=== PATIENT | male | born 1950 | race Two or more races ===

== ENCOUNTER 2017-09-08 07:04 | Outpatient (CLI) | payer OTHER ==
[~2017-09-08 07:04] MED LIST: ALL DAY ALLERGY10 M3; AMBIEN10 MG PO; AMLODIPINE BESY10 MG; ATENOLOL25 GM; CETIRIZINE HCL10 MG; CIPRO250 MG PO; CIPRO500 MG PO; CIPRO750 MG PO; DEPO-MEDROL40 MG/ML; DOCUSATE SODIU100 MG PO; DOCUSATE SODIUM50 MG; FOLIC ACID1 MG; GABAPENTIN100 MG; INTESTINEX680 MG PO; KETO10TA2 PO; LISINOPRIL40 MG; METOPROLOL SUCC50 MG; NABUMETONE500 MG; NEURONTIN PO; NORFLEX100MG PO; ORPH100T PO; PEPCID40 MG; PERCOCET 5/3251 TAB PO; PYRIDIUM100 M1 PO; QUETIAPINE FUMA50 MG; RESTASIS MULTI5.5 ML; RESTORIL30 M1; SULINDAC150 MG; TRAMADOL HCL-AP1 TAB PO; ULTRACET PO; VASOTEC2.5 MG; ZESTRIL40 M1; [UNRECOGNIZED DRUG - OTHER]
== END 2017-09-08 07:11 | disposition home or self-care (01) ==
LOC: MRI 07:04
DX: M54.5 Low back pain (principal)
CPT/HCPCS: 72158; A9579; 72149

== ENCOUNTER 2017-10-21 20:21 | Emergency (ER) | payer OTHER ==
[~2017-10-21] VITALS: Ht 180.3 cm; Wt 76.2 kg
== END 2017-10-21 21:36 | disposition home or self-care (01) ==
LOC: ER 20:21
DX: M54.31 Sciatica, right side (principal)

== ENCOUNTER 2017-11-15 09:09 | Emergency (ER) | payer OTHER ==
[~2017-11-15] VITALS: Ht 180.3 cm; Wt 75.3 kg
[2017-11-15] MEDS ORDERED: ADULT ASPIRIN81 MG PO (09:31)
[2017-11-15] MEDS ORDERED: ACETAMINOPHEN325 M1 PO (09:31)
[2017-11-15] MEDS ORDERED: LIPITOR80 MG PO (09:32)
[2017-11-15] MEDS ORDERED: REFRESH OPTIVE10 M1 OP (09:32)
[2017-11-15] MEDS ORDERED: ZESTRIL40 M1 PO (09:33)
[2017-11-15] MEDS ORDERED: SOLARAZE100 GM TP (09:33)
[2017-11-15] MEDS ORDERED: MELATIN3 MG PO (09:34)
[2017-11-15] MEDS ORDERED: TOPROL XL50 M1 PO (09:34)
[2017-11-15] MEDS ORDERED: MIRTAZAPINE15 M1 PO (09:35)
[2017-11-15] MEDS ORDERED: OMEPRAZOLE20 MG PO (09:35)
[2017-11-15] MEDS ORDERED: QUETIAPINE FUM100 MG PO (09:36)
[2017-11-15] MEDS ORDERED: TRAMADOL HCL50 MG PO (09:36)
== END 2017-11-15 12:36 | disposition home or self-care (01) ==
LOC: ER 09:09
DX: M54.41 Lumbago with sciatica, right side (principal)

== ENCOUNTER 2017-12-06 13:39 | Emergency (ER) | payer OTHER ==
[~2017-12-06] VITALS: Ht 180.3 cm; Wt 80.3 kg
[~2017-12-06 13:39] MED LIST changes: +ACETAMINOPHEN325 M1 PO; +ADULT ASPIRIN81 MG PO; +LIPITOR80 MG PO; +MELATIN3 MG PO; +MIRTAZAPINE15 M1 PO; +OMEPRAZOLE20 MG PO; +QUETIAPINE FUM100 MG PO; +REFRESH OPTIVE10 M1 OP; +SOLARAZE100 GM TP; +TOPROL XL50 M1 PO; +TRAMADOL HCL50 MG PO; +ZESTRIL40 M1 PO
== END 2017-12-06 14:43 | disposition home or self-care (01) ==
LOC: ER 13:39
DX: M54.31 Sciatica, right side (principal)

== ENCOUNTER → 2018-05-05 07:08 | Outpatient (CLI) | payer OTHER | END | disposition home or self-care (01) | LOC: LAB 07:08 | DX: G30.1 Alzheimer's disease with late onset (principal); R41.3 Other amnesia; R41.89 Other symptoms and signs involving cognitive functions and awareness; E03.8 Other specified hypothyroidism ==

== ENCOUNTER 2018-05-11 08:24 | Outpatient (CLI) | payer OTHER | END 2018-05-11 10:00 | disposition home or self-care (01) | LOC: MRI 08:24 | DX: H93.3X3 Disorders of bilateral acoustic nerves (principal); R42 Dizziness and giddiness | CPT/HCPCS: 70553; A9579 ==

== ENCOUNTER 2018-07-19 12:10 | Emergency (ER) | payer OTHER ==
[~2018-07-19] VITALS: Ht 180.3 cm; Wt 76.2 kg
== END 2018-07-19 16:19 | disposition home or self-care (01) ==
LOC: ER 12:10
DX: J11.1 Influenza due to unidentified influenza virus with other respiratory manifestations (principal)

== ENCOUNTER 2018-07-23 11:48 | Outpatient (CLI) | payer OTHER | END 2018-07-23 12:01 | disposition home or self-care (01) | LOC: MRI 11:48 | DX: M50.20 Other cervical disc displacement, unspecified cervical region (principal); M50.30 Other cervical disc degeneration, unspecified cervical region | CPT/HCPCS: 72141 ==

== ENCOUNTER 2018-10-24 09:11 | Emergency (ER) | payer OTHER ==
[~2018-10-24] VITALS: Ht 180.3 cm; Wt 76.2 kg
== END 2018-10-24 18:16 | disposition home or self-care (01) ==
LOC: ER 09:11 → CPU-OBS 09:24 → ER 09:24
DX: R07.89 Other chest pain (principal)

== ENCOUNTER → 2019-01-25 | Outpatient (CLI) | payer OTHER | END | disposition home or self-care (01) | LOC: RAD 08:39 | DX: M25.521 Pain in right elbow (principal); M25.522 Pain in left elbow ==

== ENCOUNTER 2019-02-25 11:09 | Outpatient (CLI) | payer OTHER | END 2019-02-25 15:00 | disposition home or self-care (01) | LOC: LAB 11:09 | DX: M50.223 Other cervical disc displacement at C6-C7 level (principal); I70.213 Atherosclerosis of native arteries of extremities with intermittent claudication, bilateral legs; M51.36 Other intervertebral disc degeneration, lumbar region; E78.00 Pure hypercholesterolemia, unspecified; E78.1 Pure hyperglyceridemia ==

== ENCOUNTER 2019-03-03 09:14 | Outpatient (CLI) | payer OTHER | END 2019-03-03 09:23 | disposition home or self-care (01) | LOC: SONOGRAMA 09:14 | DX: M25.512 Pain in left shoulder (principal); M25.522 Pain in left elbow ==

== ENCOUNTER 2019-03-17 08:13 | Outpatient (CLI) | payer OTHER | END 2019-03-17 08:51 | disposition home or self-care (01) | LOC: LAB 08:13 → RAD 08:13 → LAB 08:51 | DX: D68.8 Other specified coagulation defects (principal); E78.2 Mixed hyperlipidemia; N39.0 Urinary tract infection, site not specified; R07.89 Other chest pain; I10 Essential (primary) hypertension ==

== ENCOUNTER 2019-04-18 07:13 | Outpatient (CLI) | payer OTHER | END 2019-04-18 07:22 | disposition home or self-care (01) | LOC: NUCLEAR 07:13 | DX: G56.42 Causalgia of left upper limb (principal) | CPT/HCPCS: 78315; A9503 ==

== ENCOUNTER 2019-04-28 09:49 | Outpatient (CLI) | payer OTHER | END 2019-04-28 09:54 | disposition home or self-care (01) | LOC: LAB 09:49 | DX: G56.03 Carpal tunnel syndrome, bilateral upper limbs (principal); F51.01 Primary insomnia ==

== ENCOUNTER 2019-08-31 14:55 | Outpatient (CLI) | payer OTHER | END 2019-08-31 15:01 | disposition home or self-care (01) | LOC: LAB 14:55 | DX: N20.0 Calculus of kidney (principal) ==

== ENCOUNTER 2019-09-02 07:55 | Outpatient (CLI) | payer OTHER | END 2019-09-02 07:59 | disposition home or self-care (01) | LOC: MRI 07:55 | DX: M54.5 Low back pain (principal) | CPT/HCPCS: 72158; A9575 ==

== ENCOUNTER 2019-09-05 07:46 | Outpatient (CLI) | payer OTHER | END 2019-09-05 08:11 | disposition home or self-care (01) | LOC: LAB 07:46 | DX: M51.36 Other intervertebral disc degeneration, lumbar region (principal); E53.8 Deficiency of other specified B group vitamins; I73.89 Other specified peripheral vascular diseases; E11.42 Type 2 diabetes mellitus with diabetic polyneuropathy ==

== ENCOUNTER 2021-01-09 07:14 | Outpatient (CLI) | payer OTHER | END 2021-01-09 07:24 | disposition home or self-care (01) | LOC: MRI 07:14 | PROVIDERS: ATTEND Orthopaedic Surgery | DX: M25.512 Pain in left shoulder (principal); M54.2 Cervicalgia; M75.122 Complete rotator cuff tear or rupture of left shoulder, not specified as traumatic | CPT/HCPCS: 72142; 73218 ==

== ENCOUNTER 2021-01-09 08:14 | Outpatient (CLI) | payer OTHER | END 2021-01-09 08:18 | disposition home or self-care (01) | LOC: LAB 08:14 | PROVIDERS: ATTEND Orthopaedic Surgery | DX: Z00.8 Encounter for other general examination (principal); M54.2 Cervicalgia ==

== ENCOUNTER 2021-02-21 10:42 | Outpatient (CLI) | payer OTHER | END 2021-02-21 10:58 | disposition home or self-care (01) | LOC: MRI 10:42 | PROVIDERS: ATTEND Orthopaedic Surgery | DX: M54.5 Low back pain (principal) | CPT/HCPCS: 72148 ==

== ENCOUNTER → 2021-03-29 | Outpatient (CLI) | payer OTHER | END | disposition home or self-care (01) | LOC: RAD 07:17 | PROVIDERS: ATTEND Orthopaedic Surgery | DX: M25.512 Pain in left shoulder (principal); M77.8 Other enthesopathies, not elsewhere classified ==

== ENCOUNTER 2021-05-27 10:02 | Outpatient (CLI) | payer OTHER | END 2021-05-27 10:24 | disposition home or self-care (01) | LOC: MRI 10:02 | PROVIDERS: ATTEND Orthopaedic Surgery | DX: M25.512 Pain in left shoulder (principal); M75.122 Complete rotator cuff tear or rupture of left shoulder, not specified as traumatic; M75.52 Bursitis of left shoulder | CPT/HCPCS: 73218 ==

== ENCOUNTER 2022-02-03 08:42 | Outpatient (CLI) | payer OTHER | END 2022-02-03 08:43 | disposition home or self-care (01) | LOC: LAB 08:42 | PROVIDERS: ATTEND Orthopaedic Surgery Orthopaedic Surgery of the Spine | DX: D68.9 Coagulation defect, unspecified (principal); D64.9 Anemia, unspecified; E03.9 Hypothyroidism, unspecified; R07.9 Chest pain, unspecified ==

== ENCOUNTER 2022-02-12 08:00 | Inpatient (IN) | payer OTHER ==
[~2022-02-12] VITALS: Ht 180.3 cm; Wt 78.9 kg
[2022-02-27] MEDS ORDERED: COLACE100 MG PO (09:44)
[2022-02-27] MEDS ORDERED: AMOX-CLAV 875-1 EACH PO (09:45)
[2022-02-27] MEDS ORDERED: NEURONTIN800 MG PO (09:45)
[2022-02-27] MEDS ORDERED: PERCOCET 5-3251 EACH PO (09:45)
[2022-02-27] MEDS ORDERED: MEDROLPACK PO (09:45)
== END 2022-03-01 14:19 | disposition home or self-care (01) | DRG 455 ==
LOC: SURG 02-18 08:00 → O/R 02-27 06:28 → SURG 02-27 08:00 → PED 02-27 13:39 → SURG 02-27 15:30 → PED 02-28 03:19
PROVIDERS: ADMIT Orthopaedic Surgery Orthopaedic Surgery of the Spine; ATTEND Orthopaedic Surgery Orthopaedic Surgery of the Spine
PROC: 0SG0071 Fusion of Lumbar Vertebral Joint with Autologous Tissue Substitute, Posterior Approach, Posterior Column, Open Approach (ICD-10-PCS; 2022-02-27)
PROC: 0ST20ZZ Resection of Lumbar Vertebral Disc, Open Approach (ICD-10-PCS; 2022-02-27)
PROC: XRGB0R7 Fusion of Lumbar Vertebral Joint using Custom-Made Anatomically Designed Interbody Fusion Device, Open Approach, New Technology Group 7 (ICD-10-PCS; principal; 2022-02-27 15:30)
DX: M51.26 Other intervertebral disc displacement, lumbar region (principal); M41.56 Other secondary scoliosis, lumbar region; M48.062 Spinal stenosis, lumbar region with neurogenic claudication; I10 Essential (primary) hypertension; E11.9 Type 2 diabetes mellitus without complications

== ENCOUNTER 2022-03-18 12:56 | Outpatient (CLI) | payer OTHER ==
[~2022-03-18 12:56] MED LIST changes: +AMOX-CLAV 875-1 EACH PO; +COLACE100 MG PO; +MEDROLPACK PO; +NEURONTIN800 MG PO; +PERCOCET 5-3251 EACH PO
== END 2022-03-18 13:08 | disposition home or self-care (01) ==
LOC: RAD 12:56
PROVIDERS: ATTEND Orthopaedic Surgery Orthopaedic Surgery of the Spine
DX: Z98.1 Arthrodesis status (principal)

== ENCOUNTER → 2022-03-26 | Outpatient (CLI) | payer OTHER | END | disposition home or self-care (01) | LOC: TOM 12:54 | PROVIDERS: ATTEND Otolaryngology | DX: H80.11 Otosclerosis involving oval window, obliterative, right ear (principal) ==

== ENCOUNTER 2022-10-09 14:54 | Outpatient (CLI) | payer OTHER | END 2022-10-09 15:03 | disposition home or self-care (01) | LOC: MRI 14:54 | PROVIDERS: ATTEND Orthopaedic Surgery | DX: M54.12 Radiculopathy, cervical region (principal); M25.512 Pain in left shoulder | CPT/HCPCS: 73218 ==

== ENCOUNTER 2022-11-26 07:10 | Outpatient (CLI) | payer OTHER | END 2022-11-26 08:19 | disposition home or self-care (01) | LOC: RAD 07:10 | PROVIDERS: ATTEND Orthopaedic Surgery Orthopaedic Surgery of the Spine | DX: Z98.1 Arthrodesis status (principal) ==

== ENCOUNTER 2022-11-28 12:22 | Outpatient (CLI) | payer OTHER | END 2022-11-28 12:29 | disposition home or self-care (01) | LOC: RAD 12:22 | PROVIDERS: ATTEND Orthopaedic Surgery Orthopaedic Surgery of the Spine | DX: M50.00 Cervical disc disorder with myelopathy, unspecified cervical region (principal) | CPT/HCPCS: 72141 ==

== ENCOUNTER 2022-12-09 07:08 | Outpatient (CLI) | payer OTHER | END 2022-12-09 07:09 | disposition home or self-care (01) | LOC: RAD 07:08 | PROVIDERS: ATTEND Orthopaedic Surgery | DX: R07.9 Chest pain, unspecified (principal) ==

== ENCOUNTER → 2023-02-02 06:39 | Outpatient (CLI) | payer OTHER | END | disposition home or self-care (01) | LOC: LAB 06:39 | PROVIDERS: ATTEND Orthopaedic Surgery Orthopaedic Surgery of the Spine | DX: D68.9 Coagulation defect, unspecified (principal); D64.9 Anemia, unspecified; E03.9 Hypothyroidism, unspecified; R07.9 Chest pain, unspecified ==

== ENCOUNTER 2023-02-16 10:00 | Inpatient (IN) | payer OTHER ==
[~2023-02-16] VITALS: Ht 180.3 cm; Wt 80.7 kg
[2023-02-16] MEDS ORDERED: MIRTAZAPINE7.5 MG (11:08)
[2023-02-16] MEDS ORDERED: NITROGLYCERIN0.4 MG SL (11:09)
[2023-02-16] MEDS ORDERED: PANTOPRAZOLE SO40 M2 PO (11:09)
[2023-02-16] MEDS ORDERED: [UNRECOGNIZED DRUG - OTHER] (11:10)
[2023-02-16] MEDS ORDERED: QUETIAPINE FUM400 M1 PO (11:11)
[2023-02-16] MEDS ORDERED: TAMS0.4C PO (11:13)
[2023-02-16] MEDS ORDERED: ALLERGY RELIE15.8 ML (11:14)
[2023-02-16] MEDS ORDERED: [UNRECOGNIZED DRUG - CODE] PO (11:15)
[2023-02-19] MEDS ORDERED: PERCOCET 5-3251 EACH PO (09:31)
[2023-02-19] MEDS ORDERED: MEDROLPACK PO (09:31)
[2023-02-19] MEDS ORDERED: COLACE100 MG PO (09:32)
== END 2023-02-20 12:49 | disposition home or self-care (01) | DRG 473 ==
LOC: O/R 02-19 06:00 → PED 02-19 06:00 → O/R 02-19 08:59 → RECOVERY 02-19 10:00 → SURH 02-19 10:00 → PED 02-19 13:55
PROVIDERS: ADMIT Orthopaedic Surgery Orthopaedic Surgery of the Spine; ATTEND Orthopaedic Surgery Orthopaedic Surgery of the Spine
PROC: 0RB30ZZ Excision of Cervical Vertebral Disc, Open Approach (ICD-10-PCS; 2023-02-19)
PROC: 0PB30ZZ Excision of Cervical Vertebra, Open Approach (ICD-10-PCS; 2023-02-19)
PROC: 07DS0ZZ Extraction of Vertebral Bone Marrow, Open Approach (ICD-10-PCS; 2023-02-19)
PROC: 0RG10A0 Fusion of Cervical Vertebral Joint with Interbody Fusion Device, Anterior Approach, Anterior Column, Open Approach (ICD-10-PCS; principal; 2023-02-19 11:00)
DX: M50.023 Cervical disc disorder at C6-C7 level with myelopathy (principal); M48.02 Spinal stenosis, cervical region; I25.10 Atherosclerotic heart disease of native coronary artery without angina pectoris; I11.9 Hypertensive heart disease without heart failure

== ENCOUNTER 2023-03-08 12:58 | Emergency (ER) | payer OTHER ==
[~2023-03-08] VITALS: Ht 177.8 cm; Wt 78.0 kg
[~2023-03-08 12:58] MED LIST changes: +ALLERGY RELIE15.8 ML; +MIRTAZAPINE7.5 MG; +NITROGLYCERIN0.4 MG SL; +PANTOPRAZOLE SO40 M2 PO; +QUETIAPINE FUM400 M1 PO; +TAMS0.4C PO; +[UNRECOGNIZED DRUG - CODE] PO; +[UNRECOGNIZED DRUG - OTHER]
== END 2023-03-08 16:50 | disposition home or self-care (01) ==
LOC: ER 12:58
DX: T54.91XA Toxic effect of unspecified corrosive substance, accidental (unintentional), initial encounter (principal); H57.11 Ocular pain, right eye; I11.9 Hypertensive heart disease without heart failure; E11.9 Type 2 diabetes mellitus without complications; M19.90 Unspecified osteoarthritis, unspecified site; K29.70 Gastritis, unspecified, without bleeding; E78.49 Other hyperlipidemia; G47.09 Other insomnia; S00.251A Superficial foreign body of right eyelid and periocular area, initial encounter; Y92.89 Other specified places as the place of occurrence of the external cause; Y93.89 Activity, other specified; Z98.890 Other specified postprocedural states

== ENCOUNTER 2023-03-20 10:25 | Outpatient (CLI) | payer OTHER | END 2023-03-20 10:32 | disposition home or self-care (01) | LOC: RAD 10:25 | PROVIDERS: ATTEND Orthopaedic Surgery Orthopaedic Surgery of the Spine | DX: Z98.1 Arthrodesis status (principal) ==

== ENCOUNTER 2023-05-19 07:26 | Outpatient (CLI) | payer OTHER | END 2023-05-19 07:33 | disposition home or self-care (01) | LOC: MRI 07:26 | PROVIDERS: ATTEND Physical Medicine & Rehabilitation | DX: S43.401S Unspecified sprain of right shoulder joint, sequela (principal) | CPT/HCPCS: 73221 ==

== ENCOUNTER 2023-06-05 12:43 | Outpatient (CLI) | payer OTHER | END 2023-06-05 12:46 | disposition home or self-care (01) | LOC: RAD 12:43 | DX: Z01.818 Encounter for other preprocedural examination (principal) ==

== ENCOUNTER 2023-09-09 08:27 | Outpatient (CLI) | payer OTHER | END 2023-09-09 08:30 | disposition home or self-care (01) | LOC: MRI 08:27 | PROVIDERS: ATTEND Orthopaedic Surgery | DX: M25.511 Pain in right shoulder (principal) | CPT/HCPCS: 73221 ==

== ENCOUNTER 2023-09-11 07:06 | Outpatient (CLI) | payer OTHER | END 2023-09-11 12:09 | disposition home or self-care (01) | LOC: SONOGRAMA 07:06 | DX: S43.401S Unspecified sprain of right shoulder joint, sequela (principal); M25.512 Pain in left shoulder; Z48.89 Encounter for other specified surgical aftercare ==

== ENCOUNTER 2024-04-15 07:25 | Outpatient (CLI) | payer OTHER | END 2024-04-15 07:27 | disposition home or self-care (01) | LOC: RAD 07:25 | PROVIDERS: ATTEND Orthopaedic Surgery Orthopaedic Surgery of the Spine | DX: Z98.1 Arthrodesis status (principal) ==

== ENCOUNTER 2024-04-20 09:15 | Outpatient (CLI) | payer OTHER | END 2024-04-20 09:22 | disposition home or self-care (01) | LOC: RAD 09:15 | PROVIDERS: ATTEND Orthopaedic Surgery Orthopaedic Surgery of the Spine | DX: M48.04 Spinal stenosis, thoracic region (principal) | CPT/HCPCS: 72146 ==